=== PATIENT | female | born 1990 | race Caucasian/White ===

== ENCOUNTER → 2023-11-24 13:31 | Outpatient (CLI) | payer SELFPAY ==
--- NOTE | 2023-11-24 13:35 | DI.RAD.S_ITS ---
PROCEDURE: XR LUMBAR SPINE 2-3V INDICATIONS: low back pain TECHNIQUE: 3 views of the lumbar spine were acquired. COMPARISON: None. FINDINGS: Bones: There are 5 lumbar type vertebral bodies. Vertebral body heights are well maintained. No high-grade degenerative changes. There are minimal spondylotic findings, including minimal osteophytes and facet arthropathy. Soft tissues: No significant calcifications. IMPRESSION: No acute radiographic abnormality. Only minimal degenerative changes are seen. If there is high concern for further derangement, consider MRI evaluation. Dictated by: Jace Mariano M.D. on 11/24/2023 at 20:38 Approved by: Jace Mariano M.D. on 11/24/2023 at 20:40
== END ==
LOC: RAD 13:34
PROVIDERS: Referring Provider Physician Assistant; Visit Provider Physician Assistant
DX: S39.012A Strain of muscle, fascia and tendon of lower back, initial encounter (principal); X58.XXXA Exposure to other specified factors, initial encounter
CPT/HCPCS: 72100

== ENCOUNTER 2024-03-21 07:19 | Emergency (ER) | payer OTHER, MEDICAID, SELFPAY ==
[2024-03-21 07:29] VITALS: BP 118/61; PULSE 76; RESP 16; TEMP 36.6; O2SAT 100; BMI 21.9
--- NOTE | 2024-03-21 07:33 | PC.NURSE ---
Pt states chest tightness/anxiety have been increasing over the last 2 months. 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
--- NOTE | 2024-03-21 08:11 | DI.RAD.S_ITS ---
PROCEDURE: XR CHEST 2V INDICATIONS: lefts sided pain TECHNIQUE: 2 views of the chest were acquired. COMPARISON: None. FINDINGS: Surgical changes and devices: None. Lungs and pleura: Lungs are clear. No pleural effusions or pneumothorax. Mediastinum: Mediastinal contours are normal. Heart size is normal. Bones and chest wall: No suspicious bony abnormalities. Soft tissues appear unremarkable. IMPRESSION: No acute cardiopulmonary abnormality is seen. Dictated by: Vance Portillo M.D. on 03/21/2024 at 7:53 Approved by: Vance Portillo M.D. on 03/21/2024 at 7:54
[2024-03-21] MEDS: IBUPROFEN 400 MG TABLET 800 MG PO (08:17)
--- NOTE | 2024-03-21 08:20 | ED_ITS ---
HPI - Anxiety General Chief Complaint: Anxiety Stated Complaint: chest and back pain, anxiety Time Seen by Provider: 03/21/24 07:30 History of Present Illness HPI narrative: Patient is a healthy 33-year-old female who presents today with left-sided chest pain. It hurts every time she moves and breathes it started yesterday. She was quite worried about it and was unable to sleep last night. 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 She previously injured herself and went through [facility] which is something that she has not want do again. She also reports that she thinks that she has anxiety she does not like going to work certain person her work makes life difficult. sHe has also a single mom and has significant stress at home. Tearful upon questioning. Related Data Previous Rx's Medication Instructions Recorded baclofen 5 mg tablet 5 mg PO TID #20 tabs 11/22/23 Allergies Allergy/AdvReac Type Severity Reaction Status Date / Time No Known Drug Allergies Allergy Verified 03/21/24 07:42 Patient History Social History Smoking Status: Current every day smoker Smoking Status: Current every day smoker Exam Initial Vital Signs Initial Vital Signs: Vital Signs Temperature 97.8 F 03/21/24 07:29 Pulse Rate 76 03/21/24 07:29 Respiratory Rate 16 03/21/24 07:29 Blood Pressure 118/61 03/21/24 07:29 Pulse Oximetry 100 03/21/24 07:29 Oxygen Delivery Method Room Air 03/21/24 07:29 GENERAL: Alert tearful 33-year-old female and in no acute distress. HEENT: Head atraumatic,EOMI, pupils reactive, face symmetric, moist mucous membranes CARDIOVASCULAR: Regular rate and rhythm without murmurs, rubs or gallops. Left- sided chest pectoral muscle reproducible pain upon palpation, pain with sitting up pain with movement RESPIRATORY: Breath sounds equal bilaterally, no wheezes rales or rhonchi. ABDOMEN: Soft, nontender. Normoactive bowel sounds all 4 quadrants. No guarding or rebound. EXTREMITIES: Normal range of motion, no clubbing or edema. Neurovascularly intact NEUROLOGICAL: Alert and oriented x4.Normal gait and speech. SKIN: Warm, dry, no laceration, no petechiae, no rashes or lesions. Course Orders Ordered: ED Orders 03/21/24 08:11 Chest [XR chest 2V] Stat Discontinued Medications Ibuprofen (Ibuprofen 400 Mg Tablet) 800 mg PO NOW ONE Stop: 03/21/24 08:12 Last Admin: 03/21/24 08:17 Dose: 800 mg Documented By: YOJANA Vital Signs Vital signs: Vital Signs - 8 hr 03/21/24 07:29 03/21/24 08:52 Temperature 97.8 F 97.8 F Pulse Rate 76 71 Respiratory Rate 16 16 Blood Pressure 118/61 105/60 Pulse Oximetry 100 100 Oxygen Delivery Method Room Air Room Air MDM - Anxiety Imaging Data Chest x-ray: Radiologist's Impression: PROCEDURE: XR CHEST 2V INDICATIONS: lefts sided pain TECHNIQUE: 2 views of the chest were acquired. COMPARISON: None. FINDINGS: Surgical changes and devices: None. Lungs and pleura: Lungs are clear. No pleural effusions or pneumothorax. Mediastinum: Mediastinal contours are normal. Heart size is normal. Bones and chest wall: No suspicious bony abnormalities. Soft tissues appear unremarkable. IMPRESSION: No acute cardiopulmonary abnormality is seen. Dictated by: Vance Portillo M.D. on 03/21/2024 at 7:53 Approved by: Vance Portillo M.D. on 03/21/2024 at 7:54 [facility] Narrative Medical decision making narrative: Patient healthy 33-year-old female presents today with left-sided pain that is worse with palpation and movement. 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 Chest x-ray has been reviewed and negative. Low suspicion for any cardiac disease. She is given Motrin here in the ED. Discharge Plan Departure Patient Disposition: Home Clinical Impression: Acute costochondritis Instructions: Anxiety Disorders, Costochondritis Activity Restrictions/Additional Instructions: *You have been diagnosed with costochondritis *What to do: At this time I think you have a muscle strain. Recommend ice heat. Try to let it rest as best you can *Continue to take medications as directed Motrin 600 mg every 6 hours if needed for [id number] pain *Follow up with your primary care provider in 2-3 days or call [phone] *Return to ER if you should have increasing pain chest pain shortness of breath or any new, worsening or concerning symptoms Prescriptions: No Action baclofen 5 mg tablet 5 mg PO TID Qty: 20 0RF Rx Instructions: May cause drowsiness, do not drive or take alcohol while taking this med Referrals: Miscellaneous,Doctor, MD [Primary Care Provider] - Stand Alone Forms: Patient Portal/API
[2024-03-21 08:52] VITALS: BP 105/60; PULSE 71; RESP 16; TEMP 36.6; O2SAT 100
== END 2024-03-21 08:53 | disposition home or self-care (01) ==
PROVIDERS: Emergency Provider Emergency Medicine
DX: M94.0 Chondrocostal junction syndrome [Tietze] (principal)
CPT/HCPCS: 71046; 99283